=== PATIENT | male | born 1950 | race Caucasian/White ===

== ENCOUNTER 2018-09-09 06:57 | Day surgery (SDC) | payer MEDICARE, OTHER ==
[~2018-09-09] VITALS: Ht 180.3 cm; Wt 103.0 kg
[2018-09-09] VITALS (8 sets, daily range): BP systolic 106–147; BP diastolic 65–88
[~2018-09-09 06:57] MED LIST: CRESTOR40 MG ORAL; JANUMET XR 50-1 EAC1 ORAL; LOSARTAN POTASS50 MG ORAL; METOPROLOL TART50 M1 ORAL; ceFAZolin 1gm IVPB IVPB ONE; celeBREX 200mg Cap **SURGERY PATIENTS ONLY ORAL ONE; oxyCONTIN 20mg tab ORAL ONE
--- NOTE | 2018-09-09 08:15 | Operative Note - PDOC ---
Operative Note Operative Note Pre-op Diagnosis: left shoulder internal derangement Procedure: see op report Post-op Diagnosis: same as pre-op plus Operative Findings: consistent w/pre-op dx studies Anesthesia: regional, MAC Specimen: none Complications: none Condition: stable Estimated Blood Loss: none Implant(s) used?: No Barrett Olmos MD Sep 09, 2018 08:15
--- NOTE | 2018-09-09 08:15 | Pre-Procedure Note/Attestation ---
Pre-Procedure Note/Attestation Complete Prior to Procedure Planned Procedure: left Procedure Narrative: shoulder diagnostic arthroscopy, sad, possible rc repair Indications for Procedure Pre-Operative Diagnosis: left shoulder internal derangement Attestation I attest that I discussed the nature of the procedure; its benefits; risks and complications; and alternatives (and the risks and benefits of such alternatives ), prior to the procedure, with the patient (or the patient's legal pest control service representative). I attest that, if there was a reasonable possibility of needing a blood transfusion, the patient (or the patient's legal pest control service representative) was given the [facility] standardized written summary, pursuant to the Shawn Paul Blood Safety Act ([place] Health and Safety Code # 1645, as amended). I attest that I re-evaluated the patient just prior to the surgery and that there has been no change in the patient's H&P, except as documented below: Barrett Olmos MD Sep 09, 2018 08:15
[2018-09-09] MEDS ORDERED: celeBREX 200mg Cap **SURGERY PATIENTS ONLY ORAL ONE (08:17)
[2018-09-09] MEDS ORDERED: oxyCONTIN 20mg tab ORAL ONE (08:17)
[2018-09-09 08:36] LABS: BASOPHILS % (AUTO) 1.1 % (0.0-2.0); EOSINOPHILS % (AUTO) 1.9 % (0.0-3.0); HEMATOCRIT 44.6 % (42.0-52.0); HEMOGLOBIN 14.9 G/DL (14.2-18.0); LYMPHOCYTES % (AUTO) 16.6 % (20.0-45.0); MEAN CORPUSCULAR VOLUME 91 FL (80-99); MONOCYTES % (AUTO) 6.9 % (1.0-10.0); NEUTROPHILS % (AUTO) 73.4 % (45.0-75.0); PLATELET COUNT 313 K/UL (150-450); RED BLOOD COUNT 4.88 M/UL (4.70-6.10); RED CELL DISTRIBUTION WIDTH 11.6 % (11.6-14.8); WHITE BLOOD COUNT 9.2 K/UL (4.8-10.8)
[2018-09-09] MEDS ORDERED: Midazolam 2mg/2ml Inj ONE (10:55)
[2018-09-09] MEDS ORDERED: fentaNYL 100 mcg/2 mL IV ONE (10:55)
[2018-09-09] MEDS ORDERED: Propofol 200mg/20ml IV ONE (10:58)
[2018-09-09] MEDS ORDERED: Ropivacaine 5mg/ml Vial 30ml INJ ONE (10:58)
[2018-09-09] MEDS ORDERED: Lidocaine 1% MPF 10mg/ml 5ml ONE (10:58)
[2018-09-09] MEDS ORDERED: Succinylcholine 20mg/ml 10ml vial ONE (11:18)
[2018-09-09] MEDS ORDERED: Zemuron 50mg/5ml Inj IV ONE (11:18)
--- NOTE | 2018-09-09 11:32 | Anethesia Preoperative Eval ---
Anesthesia Pre-op PMH/ROS General Date of Evaluation: Sep 09, 2018 Time of Evaluation: 11:28 Anesthesiologist: Jluis ASA Score: ASA 3 Mallampati Score Class I : Soft palate, uvula, fauces, pillars visible Class II: Soft palate, uvula, fauces visible Class III: Soft palate, base of uvula visible Class IV: Only hard plate visible Mallampati Classification: Class III Surgeon: Nickolas Diagnosis: L shoulder scope Surgical Procedure: L shoulder pain Anesthesia History: none Family History: no anesthesia problems Allergies: Coded Allergies: No Known Allergies (Unverified , 09/09/18) Medications: see eMAR Patient NPO?: Yes Past Medical History Cardiovascular: Reports: HTN; Denies: CAD, [place], valve dz, arrhythmia, other Pulmonary: Reports: SAMANTHA; Denies: asthma, COPD, other Gastrointestinal/Genitourinary: Reports: GERD; Denies: CRI, ESRD, other Neurologic/Psychiatric: Reports: other - chronic pain; Denies: dementia, CVA, depression/anxiety, TIA Endocrine: Reports: DM; Denies: hypothyroidism, steroids, other HEENT: Denies: cataract (L), cataract (R), glaucoma, WIYOT (L), WIYOT (R), other Hematology/Immune: Denies: anemia, DVT, bleeding disorder, other Musculoskeletal/Integumentary: Denies: OA, RA, DJD, DDD, edema, other Other: obesity PMH Narrative: as above PSxH Narrative: Lumbar spine Sx Anesthesia Pre-op Phys. Exam Physician Exam Last Vital Signs Date Time Temp Pulse Resp B/P (MAP) Pulse Ox O2 Delivery O2 Flow Rate FiO2 09/09/18 07:58 Room Air 09/09/18 07:53 97.0 71 18 114/75 97 Constitutional: NAD Neurologic: CN 2-12 intact Cardiovascular: RRR, no M/R/G Respiratory: CTA Gastrointestinal: other - besity Airway Exam Mallampati Score: Class III MO: limited Neck: Short ROM: limited Teeth: intact Dentures: no upper, no lower Anesthesia Pre-op A/P Labs Hematology Test 09/09/18 08:10 White Blood Count 9.2 K/UL (4.8-10.8) Red Blood Count 4.88 M/UL (4.70-6.10) Hemoglobin 14.9 G/DL (14.2-18.0) Hematocrit 44.6 % (42.0-52.0) Mean Corpuscular Volume 91 FL (80-99) Mean Corpuscular Hemoglobin 30.5 PG (27.0-31.0) Mean Corpuscular Hemoglobin Concent 33.4 G/DL (32.0-36.0) Red Cell Distribution Width 11.6 % (11.6-14.8) Platelet Count 313 K/UL (150-450) Mean Platelet Volume 7.3 FL (6.5-10.1) Neutrophils (%) (Auto) 73.4 % (45.0-75.0) Lymphocytes (%) (Auto) 16.6 % (20.0-45.0) L Monocytes (%) (Auto) 6.9 % (1.0-10.0) Eosinophils (%) (Auto) 1.9 % (0.0-3.0) Basophils (%) (Auto) 1.1 % (0.0-2.0) Studies Pre-op Studies: EKG - NSR Risk Assessment & Plan Assessment: ASA 3 Plan: GA with ETT L brachial plexus block for postop pain control Status Change Before Surgery: No Pre-Antibiotics Drug: Acef 2gr. Given Within 1 Hr of Incision: Yes Arias Bazzi MD Sep 09, 2018 11:32
[2018-09-09] MEDS ORDERED: Kenalog-40 1ml Vial ONE (12:25)
[2018-09-09] MEDS ORDERED: EPINEPHrine 1mg/1ml Amp ONE (12:25)
[2018-09-09] MEDS ORDERED: Bupivacaine w/Epi 0.5% 30ml Vial INJ ONE (12:26)
[2018-09-09] MEDS ORDERED: NS Irrig 4000ml IRRIG ONE (13:00)
[2018-09-09] MEDS ORDERED: Sterile Water Irrig 1000ml IRRIG ONE (13:00)
[2018-09-09] MEDS ORDERED: LR 1000ml ONE (13:00)
[2018-09-09] MEDS ORDERED: HYDROmorphone 1mg/ml Carpuject SUBQ PRN (14:00)
[2018-09-09] MEDS ORDERED: Tylenol #3 tab (300mg/30mg) ORAL PRN (14:00)
[2018-09-09] MEDS ORDERED: Norco 5mg/325mg tab ORAL PRN (14:00)
[2018-09-09] MEDS ORDERED: D5 1/2NS 1,000 ML IV SCH (14:00)
[2018-09-09] MEDS ORDERED: LR 1000ml 1,000 ML IVLG SCH (14:12)
[2018-09-09] MEDS ORDERED: DiphenhydrAMINE 50mg/ml Inj IVP PRN (14:15)
[2018-09-09] MEDS ORDERED: Hydromorphone 0.5mg/0.5ml inj IVP PRN (14:15)
[2018-09-09] MEDS ORDERED: Ketorolac 30mg Inj IV PRN (14:15)
--- NOTE | 2018-09-09 14:49 | Immediate Post-Op Evaluation ---
Immediate Post-Op Evalulation Immediate Post-Op Evalulation Procedure: L shoulder arthroscopy subacromion decompression Date of Evaluation: Sep 09, 2018 Time of Evaluation: 14:48 IV Fluids: 800 Blood Products: none Estimated Blood Loss: min Urinary Output: none Blood Pressure Systolic: 127 Blood Pressure Diastolic: 78 Pulse Rate: 70 Respiratory Rate: 22 O2 Sat by Pulse Oximetry: 99 Temperature (Fahrenheit): 97.6 Pain Score (1-10): 1 Nausea: No Vomiting: No Complications none Patient Status: reacts, patent, extubated, none Hydration Status: adequate Arias Bazzi MD Sep 09, 2018 14:49
--- NOTE | 2018-09-09 15:27 | 48 Hour Post Anesthesia Eval ---
Post Anesthesia Evaluation Procedure: L shoulder arthroscopy subacromion decompression Date of Evaluation: Sep 09, 2018 Time of Evaluation: 15:25 Blood Pressure Systolic: 118 0: 76 Pulse Rate: 72 Respiratory Rate: 20 Temperature (Fahrenheit): 97.6 O2 Sat by Pulse Oximetry: 98 Airway: patent Nausea: No Vomiting: No Pain Intensity: 1 Hydration Status: adequate Cardiopulmonary Status: stable Mental Status/LOC: patient returned to baseline Follow-up Care/Observations: n/a Post-Anesthesia Complications: none Follow-up care needed: ready to discharge Arias Bazzi MD Sep 09, 2018 15:27
--- NOTE | 2018-09-09 20:45 | Operative Note - Dictated ---
DATE OF OPERATION: 09/09/2018 PREOPERATIVE DIAGNOSES: 1. Left shoulder impingement syndrome. 2. Left shoulder biceps tendon tear. POSTOPERATIVE DIAGNOSES: 1. Left shoulder grade 1 SLAP tear. 2. Left shoulder partial biceps tendon tear. 3. Impingement syndrome. 4. Partial articular-sided rotator cuff tear. PROCEDURE: 1. Left shoulder diagnostic arthroscopy with extensive debridement. 2. Left shoulder SLAP debridement/repair. 3. Left shoulder subacromial decompression bursectomy. 4. Left shoulder arthroscopic rotator cuff debridement/repair. SURGEON: Barrett Olmos M.D. ANESTHESIA: Interscalene general. INDICATION: The patient is a pleasant gentleman who has significant pain with overhead activities. He has failed conservative treatment and elected to go shoulder arthroscopy and possible subacromial decompression, bursectomy tenodesis versus repair based on the extent of the SLAP tear. Risks, limitations, expectations, and complications of procedure were discussed in detail. All questions addressed. DESCRIPTION OF PROCEDURE: After informed consent was obtained, the patient was placed under interscalene general anesthesia. The patient was carefully positioned in beach chair position. The shoulder was prepped and draped in a sterile manner. Time-out was performed. Posterolateral stab incision was then made. Trocar was introduced into the glenohumeral joint. There is an erythema in the rotator interval. There is grade 1 SLAP tear of the superior labrum. The biceps tendon appeared to be intact. There was some tear, however, has a long entrance along the biceps tendon as it made its way to the bicipital tuberosity. There was undersurface partial rotator cuff tear. At this point, a medial working portal was established and the shaver was then used to debride the superior labrum. Once the debridement of the superior labral tear was performed, anchor was evaluated for instability and formal repair was not required. Attention was turned to the biceps tendon tear. The tear was debrided. The biceps tendon was subluxed into the joint. There is no gross subluxation. The tear represented less than 15% of the width of the biceps tendon. Therefore, formal tenodesis was not required. The undersurface of the articular side of the rotator cuff tear was identified and this was debrided. It was felt that this represented less than 50% tear of the rotator cuff. At this point, the camera was placed in the subacromial space, hypertrophic bursal tissue. Working portal was established. The undersurface of the acromion was identified. Acromioplasty started from lateral to medial and completed posterior to anterior. Once that was done, the bursectomy was completed. The rotator cuff left intact. The instruments were then removed. Portal sites were closed with 3-0 Monocryl sutures. Steri-Strips and a sterile dressing were applied. The patient was awoken and taken to recovery room with stable vital signs. ESTIMATED BLOOD LOSS: None. COMPLICATIONS: None. SPECIMENS: None. IMPLANTS: None. Barrett Olmos M.D. DR: TINO JOB#: [id number] CC:
== END 2018-09-09 16:25 | disposition home or self-care (01) ==
LOC: SUR 06:57
DX: M75.42 Impingement syndrome of left shoulder (principal); S43.432A Superior glenoid labrum lesion of left shoulder, initial encounter; M75.112 Incomplete rotator cuff tear or rupture of left shoulder, not specified as traumatic; S46.112A Strain of muscle, fascia and tendon of long head of biceps, left arm, initial encounter; I10 Essential (primary) hypertension; E66.9 Obesity, unspecified; I47.1 Supraventricular tachycardia; E11.9 Type 2 diabetes mellitus without complications; G47.33 Obstructive sleep apnea (adult) (pediatric); K21.9 Gastro-esophageal reflux disease without esophagitis; G89.29 Other chronic pain; Z87.891 Personal history of nicotine dependence
CPT/HCPCS: 29823; 29826; 36415; 82962; 85025; J0171; J0330; J0690; J2250; J2704; J2795; J3010; J3301; 94003; 94150